=== PATIENT | male | born 1965 | race Caucasian/White ===

== ENCOUNTER 2016-09-02 08:26 | Inpatient (IN) | payer OTHER ==
[2016-09-02 10:06] VITALS: BMI 19.4
--- NOTE | 2016-09-02 12:33 | HP ---
COWS - Scale Resting Pulse: 0= [place] 80 or Below Sweatin= Chills/Flushing Restless Observation: 3= Extraneous Movement Pupil Size: 2= Moderately Dilated Bone or Joint Aches: 4=Acute Joint/Muscle Pain Runny Nose/ Eye Tearin= Nasal Congestion GI Upset > 30mins: 1= Stomach Cramp Tremor Observation: 2= Slight Tremor Visible Yawning Observation: 1= 1-2x During Session Anxiety or Irritability: 1=Feels Anxious/Irritable Goose Flesh Skin: 0=Smooth Skin COWS Score: 16 Admission ROS S - HPI Chief Complaint: DETOX TX FOR HEROIN DEPENDENCE Allergies/Adverse Reactions: Allergies Allergy/AdvReac Type Severity Reaction Status Date / Time No Known Drug Allergies Allergy Verified 09/02/16 10:18 History of Present Illness: 51 Y/O H/M WITH A HX OF HEROIN AND COCAINE DEPENDENCE SEEKING DETOX TX. PT WAS AT [facility] TODAY SEEKING DETOX AND WAS THEN REFERRED HERE FOR DETOX. ALERT O X 3. NAD. NO S/H IDEATIONS. Exam Limitations: No Limitations - Ebola screening Have you traveled outside of the country in the last 21 days: No Have you had contact with anyone from an Ebola affected area: No Have you been sick,other than usual withdrawal symptoms: No Do you have a fever: No - Review of Systems Constitutional: Chills, Loss of Appetite, Night Sweats, Changes in sleep, Unintentional Wgt. Loss EENT: reports: Blurred Vision, Tearing, Nose Congestion Respiratory: reports: No Symptoms reported Cardiac: reports: Lightheadedness GI: reports: Diarrhea, Nausea, Poor Appetite, Poor Fluid Intake, Vomiting, Abdominal cramping : reports: No Symptoms Reported Musculoskeletal: reports: Back Pain, Joint Pain, Muscle Pain Integumentary: reports: Bruising (IVD INJ SITES ON BOTH ELBOWS) Neuro: reports: Headache, Dizziness Endocrine: reports: No Symptoms Reported Hematology: reports: No Symptoms Reported Psychiatric: reports: Orientated x3, Anxious, Depressed Other Systems: Reviewed and Negative Patient History - Patient Medical History Hx Anemia: No Hx Asthma: No Hx Chronic Obstructive Pulmonary Disease (COPD): No Hx Cancer: No Hx Cardiac Disorders: No Hx Congestive Heart Failure: No Hx Hypertension: No Hx Hypercholesterolemia: No Hx Pacemaker: No HX Cerebrovascular Accident: No Hx Seizures: No Hx Dementia: No Hx Diabetes: No Hx Gastrointestinal Disorders: Yes (HX PANCREATITIS) Hx Liver Disease: Yes Hx Genitourinary Disorders: No Hx Sexually Transmitted Disorders: No Hx Renal Disease (ESRD): No Hx Thyroid Disease: No Hx Human Immunodeficiency Virus (HIV): No (NEGATIVE HX) Hx Hepatitis C: Yes (NO TREATMENT YET.) Hx Depression: Yes (NO CURRENT MED) Hx Suicide Attempt: Yes (pill overdose at age 47;DENIES CURRENT S/H IDEATIONS) Hx Bipolar Disorder: Yes (off seroquel for several months) Hx Schizophrenia: No - Patient Surgical History Past Surgical History: Yes Hx Neurologic Surgery: No Hx Cataract Extraction: No Hx Cardiac Surgery: No Hx Lung Surgery: No Hx Breast Surgery: No Hx Breast Biopsy: No Hx Abdominal Surgery: No Hx Appendectomy: No Hx Cholecystectomy: No Hx Genitourinary Surgery: No Hx Orthopedic Surgery: Yes (B/L SHOULDER 2011 for frozed shoulder) Anesthesia Reaction: No - PPD History Previous Implant?: Yes Documented Results: Negative w/proof Implanted On Prior [facility] Admission?: Yes Date: 07/03/15 Results: 0 mm PPD to be Administered?: Yes - Reproductive History Patient is a Female of Child Bearing Age (11 -55 yrs old): No (MALE) Patient : (N/A) - Smoking Cessation Smoking history: Current every day smoker Have you smoked in the past 12 months: Yes Aproximately how many cigarettes per day: 10 Hx Chewing Tobacco Use: No Initiated information on smoking cessation: Yes 'Breaking Loose' booklet given: 09/02/16 - Substance & Tx. History Hx Alcohol Use: No (DENIES) Hx Substance Use: Yes (HEROIN/COCAINE) Substance Use Type: Cocaine, Heroin Hx Substance Use Treatment: Yes (LAST TX AT [facility]-DETOX) - Substances Abused Heroin Route: Injection Frequency: Daily Amount used: 4-5 bags Age of first use: 23 Date of Last Use: 09/01/16 Cocaine Route: Injection Frequency: Daily Amount used: $40 Age of first use: 23 Date of Last Use: 09/01/16 Family Disease History - Family Disease History Family Disease History: Diabetes: Mother (alcohol), CA: Grandparent (LIVER ), Father (LIVER , alcohol) Admission Physical Exam S - Vital Signs Vital Signs: Vital Signs - 24 hr 09/02/16 10:04 Temperature 97.2 F L Pulse Rate 69 Respiratory 18 Rate Blood Pressure 119/73 - Physical General Appearance: Yes: Moderate Distress, Thin, Anxious HEENTM: Yes: EOMI, Normocephalic, JESI, Pharynx Normal Respiratory: Yes: Chest Non-Tender, Lungs Clear, Normal Breath Sounds, No Respiratory Distress Neck: Yes: Supple, Trachea in good position Breast: Yes: Breast Exam Deferred Cardiology: Yes: Regular Rhythm, Regular Rate, S1, S2 Abdominal: Yes: Normal Bowel Sounds, Non Tender, Soft Genitourinary: Yes: Other (N/C) Back: Yes: Within Normal Limits Musculoskeletal: Yes: full range of Motion, Gait Steady Extremities: Yes: Normal Range of Motion, Non-Tender Neurological: Yes: senior linux administrator II-XII NML intact, Fully Oriented, Alert Integumentary: Yes: Dry, Warm, Track Oliva (SLIGHT ECHYMOTIC AREA ON RIGHT ELBOW DUE TO IVD INJ.) Lymphatic: Yes: Within Normal Limits - Diagnostic (1) Nicotine dependence Current Visit: Yes Status: Acute Qualifiers: Nicotine product type: cigarettes Substance use status: in withdrawal Qualified Code(s): F17.213 - Nicotine dependence, cigarettes, with withdrawal (2) Cocaine dependence, uncomplicated Current Visit: Yes Status: Acute (3) Opioid dependence with withdrawal Current Visit: Yes Status: Acute (4) Weight loss Current Visit: Yes Status: Chronic Cleared for Admission [facility] - Detox or Rehab [facility] Level of Care: Medically Managed Detox Regimen/Protocol: Methadone [facility] Breath Alcohol Content Breath Alcohol Content: 0 Urine Drug Screen - Results Drug Screen Negative: No Urine Drug Screen Results: RAMIREZ-Cocaine, OPI-Opiates
[2016-09-02] MEDS ORDERED: guaiFENesin/D-METHORPHAN HB 10 ML UNIT-DOSE CUPS PO PRN (12:40)
[2016-09-02] MEDS ORDERED: IBUPROFEN 400 MG TABLET (FP) PO PRN (12:40)
[2016-09-02] MEDS ORDERED: MAGNESIUM CITRATE 300 ML BOTTLE PO PRN (12:40)
[2016-09-02] MEDS ORDERED: MAGNESIUM HYDROX 2400MG/30ML ORAL SUSPENSION 30 ML CUP PO PRN (12:40)
[2016-09-02] MEDS ORDERED: MAG HYDROX/AL HYDROX/SIMETH 30 ML UNIT-DOSE CUP PO PRN (12:40)
[2016-09-02] MEDS ORDERED: NICOTINE POLACRILEX 2 MG GUM BUC PRN (12:40)
[2016-09-02] MEDS ORDERED: P-EPHED 60MG/TRIPROLIDI 2.5MG TABLET PO PRN (12:40)
[2016-09-02] MEDS ORDERED: MENTHOL/PHENOL 1 EACH UD MM PRN (12:40)
[2016-09-02] MEDS ORDERED: ACETAMINOPHEN 325 MG TABLET (FP) PO PRN (12:40)
[2016-09-02] MEDS ORDERED: METHADONE HCL 10 MG TABLET (FOR DETOX USE ONLY) PO ONE ×2 (13:41→23:00)
[2016-09-02] MEDS: diazePAM 5 MG TABLET PO PRN ×2 (14:01→22:23)
[2016-09-02] MEDS: NICOTINE 14 MG/24 HOURS TOPICAL PATCH TD SCH (14:01)
[2016-09-02 21:57] LABS: URINE APPEARANCE CLEAR; URINE BILIRUBIN NEGATIVE (NEGATIVE); URINE BLOOD NEGATIVE (NEGATIVE); URINE COLOR AMBER; URINE GLUCOSE (UA) NEGATIVE (NEGATIVE); URINE KETONE NEGATIVE (NEGATIVE); URINE LEUK ESTERASE TRACE (NEGATIVE); URINE NITRITE NEGATIVE (NEGATIVE); URINE PROTEIN NEGATIVE (NEGATIVE); URINE UROBILINOGEN 4.0 E.U/dl mg/dL (0.2-1.0)
[2016-09-02 22:15] LABS: CALCIUM OXALATE CRYSTALS FEW /hpf (NONE SEEN); URINE BACTERIA RARE /hpf (NONE SEEN); URINE HYALINE CAST 2 /lpf; URINE MUCUS FEW; URINE RBC 3 /hpf (0-3); URINE WBC 7 /hpf (3-5)
[2016-09-02] MEDS: THIAMINE HCL 100 MG TABLET (FP) PO SCH (22:23)
[2016-09-02] MEDS: diphenhydrAMINE HCL 50 MG CAPSULE PO PRN (22:24)
[2016-09-03] MEDS ORDERED: METHADONE HCL 10 MG TABLET (FOR DETOX USE ONLY) PO ONE (10:00)
[2016-09-03] MEDS: PRENATAL VITAMINS W/ FOLIC ACID TABLET (FP) PO SCH (10:07)
[2016-09-03] MEDS: NICOTINE 14 MG/24 HOURS TOPICAL PATCH TD SCH (10:08)
[2016-09-03 10:31] LABS: MCH 31.1 pg (25.7-33.7); MEAN CELL VOLUME 94.3 fl (80-96); MEAN PLT VOLUME 10.3 fl (7.5-11.1); PLATELET COUNT 168 K/MM3 (134-434); RDW 12.9 % (11.9-15.9); WHITE BLOOD COUNT 5.8 K/mm3 (4.0-10.0)
[2016-09-03 10:57] LABS: ALBUMIN 3.6 g/dl (3.4-5.0); ALK PHOS 76 U/L (45-117); ANION GAP 7 (8-16); BILIRUBIN,TOTAL 1.5 mg/dL (0.2-1.0); CALCIUM 8.9 mg/dL (8.5-10.1); CO2 31 mmol/L (21-32); CREATININE 0.7 mg/dL (0.7-1.3); GLUCOSE,RANDOM 212 mg/dL (74-106); SGOT/AST 58 U/L (15-37); SGPT/ALT 79 U/L (12-78); TOT PROT 7.1 g/dl (6.4-8.2)
--- NOTE | 2016-09-03 14:00 | PN ---
BHS COWS - Scale Resting Pulse: 0= [place] 80 or Below Sweatin=Flushed/Facial Moisture Restless Observation: 1= Difficult to Sit Still Pupil Size: 0= Normal to Room Light Bone or Joint Aches: 1= Mild Discomfort Runny Nose/ Eye Tearin= Runny Nose/Eyes GI Upset > 30mins: 2= Nausea/Diarrhea Tremor Observation of Outstretched Hands: 2= Slight Tremor Visible Yawning Observation: 1= 1-2x During Session Anxiety or Irritability: 2=Irritable/Anxious Goose Flesh Skin: 0=Smooth Skin COWS Score: 13 BHS Progress Note (SOAP) Subjective: Anxiety,sweating,interrupted sleep,body aches,muscle spasm. Objective: 09/03/16 13:59 Vital Signs - 8 hr 09/03/16 09/03/16 09/03/16 06:00 06:30 09:50 Temperature 97.7 F 97.5 F L Pulse Rate 63 54 L Respiratory 18 18 18 Rate Blood Pressure 99/61 107/73 Laboratory Last Values WBC 5.8 K/mm3 (4.0-10.0) 09/03/16 06:15 RBC 4.67 M/mm3 (4.00-5.60) 09/03/16 06:15 Hgb 14.5 GM/dL (11.7-16.9) 09/03/16 06:15 Hct 44.0 % (35.4-49) 09/03/16 06:15 MCV 94.3 fl (80-96) 09/03/16 06:15 MCH 31.1 pg (25.7-33.7) 09/03/16 06:15 MCHC 33.0 g/dl (32.0-35.9) 09/03/16 06:15 RDW 12.9 % (11.9-15.9) 09/03/16 06:15 Plt Count 168 K/MM3 (134-434) D 09/03/16 06:15 MPV 10.3 fl (7.5-11.1) D 09/03/16 06:15 Sodium 137 mmol/L (136-145) 09/03/16 06:15 Potassium 3.9 mmol/L (3.5-5.1) 09/03/16 06:15 Chloride 99 mmol/L (98-107) 09/03/16 06:15 Carbon Dioxide 31 mmol/L (21-32) 09/03/16 06:15 Anion Gap 7 (8-16) L 09/03/16 06:15 BUN 9 mg/dL (7-18) D 09/03/16 06:15 Creatinine 0.7 mg/dL (0.7-1.3) 09/03/16 06:15 Creat Clearance w eGFR > 60 (>60) 09/03/16 06:15 Random Glucose 212 mg/dL (74-106) H D 09/03/16 06:15 Calcium 8.9 mg/dL (8.5-10.1) 09/03/16 06:15 Total Bilirubin 1.5 mg/dL (0.2-1.0) H D 09/03/16 06:15 AST 58 U/L (15-37) H D 09/03/16 06:15 ALT 79 U/L (12-78) H D 09/03/16 06:15 Alkaline Phosphatase 76 U/L (45-117) 09/03/16 06:15 Total Protein 7.1 g/dl (6.4-8.2) 09/03/16 06:15 Albumin 3.6 g/dl (3.4-5.0) 09/03/16 06:15 Urine Color Carly 09/02/16 21:00 Urine Appearance Clear 09/02/16 21:00 Urine pH 5.0 (5.0-8.0) 09/02/16 21:00 Ur Specific [place] >= 1.030 (1.005-1.025) H 09/02/16 21:00 Urine Protein Negative (NEGATIVE) 09/02/16 21:00 Urine Glucose (UA) Negative (NEGATIVE) 09/02/16 21:00 Urine Ketones Negative (NEGATIVE) 09/02/16 21:00 Urine Blood Negative (NEGATIVE) 09/02/16 21:00 Urine Nitrite Negative (NEGATIVE) 09/02/16 21:00 Urine Bilirubin Negative (NEGATIVE) 09/02/16 21:00 Urine Urobilinogen 4.0 e.u/dl mg/dL (0.2-1.0) 09/02/16 21:00 Ur Leukocyte Esterase Trace (NEGATIVE) 09/02/16 21:00 Urine RBC 3 /hpf (0-3) 09/02/16 21:00 Urine WBC 7 /hpf (3-5) 09/02/16 21:00 Ur Epithelial Cells Rare /hpf (FEW) 09/02/16 21:00 Calcium Oxalate Crystal Few /hpf (NONE SEEN) 09/02/16 21:00 Urine Bacteria Rare /hpf (NONE SEEN) 09/02/16 21:00 Hyaline Casts 2 /lpf 09/02/16 21:00 Urine Mucus Few 09/02/16 21:00 RPR Titer Nonreactive (NONREACTIVE) 09/03/16 06:15 labs noted Assessment: 09/03/16 14:00 Withdrawal sx. Plan: Continue detox
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
[2016-09-03] MEDS: QUEtiapine FUMARATE 100 MG TABLET (FP) PO SCH (22:06)
[2016-09-03] MEDS: diazePAM 5 MG TABLET PO PRN (22:06)
[2016-09-03] MEDS: diphenhydrAMINE HCL 50 MG CAPSULE PO PRN (22:06)
[2016-09-03] MEDS: THIAMINE HCL 100 MG TABLET (FP) PO SCH (22:06)
[2016-09-04] MEDS ORDERED: METHADONE HCL 5 MG TABLET (FOR DETOX USE ONLY) PO ONE (10:00)
[2016-09-04] MEDS: PRENATAL VITAMINS W/ FOLIC ACID TABLET (FP) PO SCH (10:21)
[2016-09-04] MEDS: NICOTINE 14 MG/24 HOURS TOPICAL PATCH TD SCH (10:22)
--- NOTE | 2016-09-04 12:50 | PN ---
BHS COWS - Scale Resting Pulse: 0= [place] 80 or Below Sweatin=Flushed/Facial Moisture Restless Observation: 1= Difficult to Sit Still Pupil Size: 0= Normal to Room Light Bone or Joint Aches: 1= Mild Discomfort Runny Nose/ Eye Tearin= Runny Nose/Eyes GI Upset > 30mins: 2= Nausea/Diarrhea Tremor Observation of Outstretched Hands: 2= Slight Tremor Visible Yawning Observation: 1= 1-2x During Session Anxiety or Irritability: 2=Irritable/Anxious Goose Flesh Skin: 0=Smooth Skin COWS Score: 13 BHS Progress Note (SOAP) Subjective: Anxiety,sweating,interrupted sleep,restless,body aches. Objective: 09/04/16 12:49 Vital Signs - 8 hr 09/04/16 09/04/16 06:00 10:00 Temperature 97.7 F 97.9 F Pulse Rate 61 62 Respiratory 16 18 Rate Blood Pressure 93/61 107/68 Laboratory Last Values WBC 5.8 K/mm3 (4.0-10.0) 09/03/16 06:15 RBC 4.67 M/mm3 (4.00-5.60) 09/03/16 06:15 Hgb 14.5 GM/dL (11.7-16.9) 09/03/16 06:15 Hct 44.0 % (35.4-49) 09/03/16 06:15 MCV 94.3 fl (80-96) 09/03/16 06:15 MCH 31.1 pg (25.7-33.7) 09/03/16 06:15 MCHC 33.0 g/dl (32.0-35.9) 09/03/16 06:15 RDW 12.9 % (11.9-15.9) 09/03/16 06:15 Plt Count 168 K/MM3 (134-434) D 09/03/16 06:15 MPV 10.3 fl (7.5-11.1) D 09/03/16 06:15 Sodium 137 mmol/L (136-145) 09/03/16 06:15 Potassium 3.9 mmol/L (3.5-5.1) 09/03/16 06:15 Chloride 99 mmol/L (98-107) 09/03/16 06:15 Carbon Dioxide 31 mmol/L (21-32) 09/03/16 06:15 Anion Gap 7 (8-16) L 09/03/16 06:15 BUN 9 mg/dL (7-18) D 09/03/16 06:15 Creatinine 0.7 mg/dL (0.7-1.3) 09/03/16 06:15 Creat Clearance w eGFR > 60 (>60) 09/03/16 06:15 Random Glucose 212 mg/dL (74-106) H D 09/03/16 06:15 Calcium 8.9 mg/dL (8.5-10.1) 09/03/16 06:15 Total Bilirubin 1.5 mg/dL (0.2-1.0) H D 09/03/16 06:15 AST 58 U/L (15-37) H D 09/03/16 06:15 ALT 79 U/L (12-78) H D 09/03/16 06:15 Alkaline Phosphatase 76 U/L (45-117) 09/03/16 06:15 Total Protein 7.1 g/dl (6.4-8.2) 09/03/16 06:15 Albumin 3.6 g/dl (3.4-5.0) 09/03/16 06:15 Urine Color Carly 09/02/16 21:00 Urine Appearance Clear 09/02/16 21:00 Urine pH 5.0 (5.0-8.0) 09/02/16 21:00 Ur Specific [place] >= 1.030 (1.005-1.025) H 09/02/16 21:00 Urine Protein Negative (NEGATIVE) 09/02/16 21:00 Urine Glucose (UA) Negative (NEGATIVE) 09/02/16 21:00 Urine Ketones Negative (NEGATIVE) 09/02/16 21:00 Urine Blood Negative (NEGATIVE) 09/02/16 21:00 Urine Nitrite Negative (NEGATIVE) 09/02/16 21:00 Urine Bilirubin Negative (NEGATIVE) 09/02/16 21:00 Urine Urobilinogen 4.0 e.u/dl mg/dL (0.2-1.0) 09/02/16 21:00 Ur Leukocyte Esterase Trace (NEGATIVE) 09/02/16 21:00 Urine RBC 3 /hpf (0-3) 09/02/16 21:00 Urine WBC 7 /hpf (3-5) 09/02/16 21:00 Ur Epithelial Cells Rare /hpf (FEW) 09/02/16 21:00 Calcium Oxalate Crystal Few /hpf (NONE SEEN) 09/02/16 21:00 Urine Bacteria Rare /hpf (NONE SEEN) 09/02/16 21:00 Hyaline Casts 2 /lpf 09/02/16 21:00 Urine Mucus Few 09/02/16 21:00 RPR Titer Nonreactive (NONREACTIVE) 09/03/16 06:15 labs noted Assessment: 09/04/16 12:50 Withdrawal sx. Plan: Continue detox
[2016-09-04] MEDS: diazePAM 5 MG TABLET PO PRN (22:00)
[2016-09-04] MEDS: QUEtiapine FUMARATE 100 MG TABLET (FP) PO SCH (22:00)
[2016-09-04] MEDS: diphenhydrAMINE HCL 50 MG CAPSULE PO PRN (22:00)
[2016-09-04] MEDS: THIAMINE HCL 100 MG TABLET (FP) PO SCH (22:01)
[2016-09-05] MEDS: diphenhydrAMINE HCL 50 MG CAPSULE PO PRN (00:25)
[2016-09-05] MEDS: LOPERAMIDE HCL 2 MG CAPSULE PO PRN ×2 (07:14→14:20)
--- NOTE | 2016-09-05 09:12 | PN ---
BHS Progress Note (SOAP) Subjective: irritable agitation sweats diarrhea interrupted sleep Objective: 09/05/16 09:11 Vital Signs Temperature 98.6 F 09/05/16 06:01 Pulse Rate 72 09/05/16 06:01 Respiratory Rate 18 09/05/16 06:01 Blood Pressure 105/66 09/05/16 06:01 O2 Sat by Pulse Oximetry (%) awake/alert ambulating no acute distress Assessment: 09/05/16 09:13 withdrawal sx Plan: continue detox increase fluids immodium prn
[2016-09-05] MEDS ORDERED: METHADONE HCL 5 MG TABLET (FOR DETOX USE ONLY) PO ONE (10:00)
--- NOTE | 2016-09-05 10:00 | EKG ---
Test Reason : Blood Pressure : / mmHG Vent. Rate : 081 BPM Atrial Rate : 081 BPM P-R Int : 136 ms QRS Dur : 092 ms QT Int : 356 ms P-R-T Axes : 067 072 059 degrees QTc Int : 413 ms NORMAL SINUS RHYTHM RIGHT ATRIAL ENLARGEMENT MODERATE VOLTAGE CRITERIA FOR LVH, MAY BE NORMAL VARIANT ST ELEVATION, CONSIDER EARLY REPOLARIZATION BORDERLINE ECG NO PREVIOUS ECGS AVAILABLE Confirmed by NIRAJ DEL TORO, MAYRA ([id number]) on 09/05/2016 9:59:55 AM Referred By: Martin Gregory Confirmed By:MAYRA HEALY MD
[2016-09-05] MEDS: diazePAM 5 MG TABLET PO PRN (10:16)
[2016-09-05] MEDS: PRENATAL VITAMINS W/ FOLIC ACID TABLET (FP) PO SCH (10:16)
[2016-09-05] MEDS: NICOTINE 14 MG/24 HOURS TOPICAL PATCH TD SCH (10:17)
[2016-09-05] MEDS: QUEtiapine FUMARATE 100 MG TABLET (FP) PO SCH (22:18)
[2016-09-05] MEDS: THIAMINE HCL 100 MG TABLET (FP) PO SCH (22:18)
[2016-09-06] MEDS: LOPERAMIDE HCL 2 MG CAPSULE PO PRN (00:58)
[2016-09-06] MEDS ORDERED: METHADONE HCL 10 MG TABLET (FOR DETOX USE ONLY) PO ONE (10:00)
[2016-09-06] MEDS: NICOTINE 14 MG/24 HOURS TOPICAL PATCH TD SCH (10:05)
--- NOTE | 2016-09-06 10:47 | PN ---
BHS Progress Note (SOAP) Subjective: diarrhea sweats Objective: 09/06/16 10:14 Vital Signs Temperature 98.4 F 09/06/16 10:00 Pulse Rate 81 09/06/16 10:00 Respiratory Rate 16 09/06/16 10:00 Blood Pressure 113/70 09/06/16 10:00 O2 Sat by Pulse Oximetry (%) awake/alert ambulating no acute distress Assessment: 09/06/16 10:15 withdrawal sx Plan: continue detox increase fluids lomotil x one d/c in am
[2016-09-06] MEDS ORDERED: DIPHENOXYLATE 2.5/ATROPINE.025 1 COMBO TABLET PO ONE (10:53)
[2016-09-06] MEDS: PRENATAL VITAMINS W/ FOLIC ACID TABLET (FP) PO SCH (11:49)
[2016-09-06] MEDS ORDERED: hydrOXYzine PAMOATE 50 MG CAPSULE (FP) PO PRN (20:35)
[2016-09-06] MEDS: QUEtiapine FUMARATE 100 MG TABLET (FP) PO SCH (22:16)
[2016-09-06] MEDS: THIAMINE HCL 100 MG TABLET (FP) PO SCH (22:16)
[2016-09-07] MEDS ORDERED: METHADONE HCL 5 MG TABLET (FOR DETOX USE ONLY) PO ONE (06:00)
--- NOTE | 2016-09-07 08:49 | DS ---
[facility] Detox Discharge Summary Admission Date: 09/02/16 Discharge Date: 09/07/16 - History Present History: Cocaine Dependence, Opioid Dependence - Physical Exam Results Vital Signs: Vital Signs Temperature 98.2 F 09/07/16 06:27 Pulse Rate 74 09/07/16 06:27 Respiratory Rate 18 09/07/16 06:27 Blood Pressure 115/73 09/07/16 06:27 O2 Sat by Pulse Oximetry (%) - Treatment Hospital Course: Detox Protocol Followed, Detoxed Safely, Responded well, Discharged Condition Good, Rehab Referral Accepted - Medication Discharge Medications: Ambulatory Orders NK [No Known Home Medication] 09/02/16 - Diagnosis (1) Cocaine dependence, uncomplicated Current Visit: Yes Status: Chronic (2) Nicotine dependence Current Visit: Yes Status: Chronic Qualifiers: Nicotine product type: cigarettes Substance use status: uncomplicated Qualified Code(s): F17.210 - Nicotine dependence, cigarettes, uncomplicated (3) Opioid dependence with withdrawal Current Visit: Yes Status: Chronic (4) Weight loss Current Visit: Yes Status: Chronic (5) Bipolar II disorder Current Visit: No Status: Acute (6) Drug-induced mood disorder Current Visit: No Status: Acute (7) Sedated Current Visit: No Status: Acute (8) Chronic pancreatitis Current Visit: No Status: Chronic Qualifiers: Pancreatitis type: idiopathic Qualified Code(s): K86.1 - Other chronic pancreatitis (9) Heroin use disorder, severe, dependence Current Visit: Yes Status: Chronic (10) Bipolar 1 disorder, depressed Current Visit: No Status: Suspected - AMA Did Patient Leave Against Medical Advice: No
[2016-09-07] MEDS: PRENATAL VITAMINS W/ FOLIC ACID TABLET (FP) PO SCH (09:16)
[2016-09-07] MEDS: NICOTINE 14 MG/24 HOURS TOPICAL PATCH TD SCH (09:16)
[2016-09-07 13:30] VITALS: BP 128/62; PULSE 81; TEMP 97.7
== END 2016-09-07 14:33 | disposition other institution (70) | DRG 773 ==
LOC: YASAS 08:26 → Y6N 11:50
PROVIDERS: ADMIT Internal Medicine; ATTEND Internal Medicine
PROC: HZ2ZZZZ Detoxification Services for Substance Abuse Treatment (ICD-10-PCS; principal; 2016-09-02)
DX: F11.23 Opioid dependence with withdrawal (principal); F14.20 Cocaine dependence, uncomplicated; F17.210 Nicotine dependence, cigarettes, uncomplicated; F31.81 Bipolar II disorder; F19.24 Other psychoactive substance dependence with psychoactive substance-induced mood disorder; K86.1 Other chronic pancreatitis; B18.2 Chronic viral hepatitis C; Z87.898 Personal history of other specified conditions; Z91.5 Personal history of self-harm
CPT/HCPCS: 36415; 80053; 81003; 81015; 82947; 85027; 86593; 93005; 93010

== ENCOUNTER 2016-09-07 14:41 | Inpatient (IN) | payer OTHER ==
[2016-09-07] MEDS ORDERED: MAGNESIUM HYDROX 2400MG/30ML ORAL SUSPENSION 30 ML CUP PO PRN (15:54)
[2016-09-07] MEDS ORDERED: ACETAMINOPHEN 325 MG TABLET (FP) PO PRN (15:54)
[2016-09-07] MEDS ORDERED: NICOTINE POLACRILEX 2 MG GUM BUC PRN (15:54)
[2016-09-07] MEDS ORDERED: hydrOXYzine PAMOATE 50 MG CAPSULE (FP) PO PRN (15:54)
[2016-09-07] MEDS ORDERED: MAG HYDROX/AL HYDROX/SIMETH 30 ML UNIT-DOSE CUP PO PRN (15:54)
[2016-09-07] MEDS ORDERED: diphenhydrAMINE HCL 50 MG CAPSULE PO PRN (15:54)
[2016-09-07] MEDS ORDERED: LOPERAMIDE HCL 2 MG CAPSULE PO PRN (15:54)
[2016-09-07] MEDS ORDERED: IBUPROFEN 400 MG TABLET (FP) PO PRN (15:54)
[2016-09-07] MEDS ORDERED: MAGNESIUM CITRATE 300 ML BOTTLE PO PRN (15:54)
[2016-09-07] MEDS ORDERED: guaiFENesin/D-METHORPHAN HB 10 ML UNIT-DOSE CUPS PO PRN (15:54)
[2016-09-07] MEDS ORDERED: MENTHOL/PHENOL 1 EACH UD MM PRN (15:54)
[2016-09-07] MEDS ORDERED: P-EPHED 60MG/TRIPROLIDI 2.5MG TABLET PO PRN (15:54)
[2016-09-07] MEDS ORDERED: NICOTINE 21 MG/24 HOURS TOPICAL PATCH TD SCH (16:00)
--- NOTE | 2016-09-07 19:49 | PN ---
[facility] Progress Note Note: Psychiatry Attending-loss prevention consultant 's note : Nurse in charge called earlier (one hour ago). Issue : new admission,Karime Metz,wants to leave program. He is instructed to wait for psychiatrist.Refused to stay for evaluation. Left unit despite staff's instructions to wait for meeting with physician.
[2016-09-07] MEDS ORDERED: THIAMINE HCL 100 MG TABLET (FP) PO SCH (22:00)
--- NOTE | 2016-09-08 06:03 | HP ---
[facility] Re[facility] Assess/Revision - Admission History Admitted to Rehab from: [facility] Date of Admission to Rehab: 09/07/16 - Findings Detox History & Physical reviewed: Yes Concur with findings: Yes Comments/Additional Findings: for rehab as protocol
[2016-09-08] MEDS ORDERED: PRENATAL VITAMINS W/ FOLIC ACID TABLET (FP) PO SCH (10:00)
== END 2016-09-07 17:35 | disposition left against medical advice (07) | DRG 770 ==
LOC: YASAS 14:41 → Y3W 14:42
PROVIDERS: ADMIT Psychiatry & Neurology Psychiatry; ATTEND Psychiatry & Neurology Psychiatry
PROC: HZ42ZZZ Group Counseling for Substance Abuse Treatment, Cognitive-Behavioral (ICD-10-PCS; principal; 2016-09-07)
DX: F11.20 Opioid dependence, uncomplicated (principal); F14.20 Cocaine dependence, uncomplicated; F17.210 Nicotine dependence, cigarettes, uncomplicated

== ENCOUNTER 2023-10-22 10:27 | Inpatient (IN) | payer OTHER ==
[2023-10-22 11:04] VITALS: BMI 19.9
[2023-10-22] MEDS ORDERED: TRIMETHOBENZAMIDE HCL 200MG/2ML INJ IM ONE (15:01)
[2023-10-22] MEDS: TRIMETHOBENZAMIDE HCL 200MG/2ML INJ IM ONE (15:08)
[2023-10-22] MEDS ORDERED: MAG HYDROX/AL HYDROX/SIMETH 30 ML UNIT-DOSE CUP PO PRN (17:12)
[2023-10-22] MEDS ORDERED: NICOTINE POLACRILEX 4 MG GUM BUC PRN (17:12)
[2023-10-22] MEDS ORDERED: guaiFENesin 600 MG TABLET.ER (FP) PO PRN (17:12)
[2023-10-22] MEDS ORDERED: IBUPROFEN 400 MG TABLET (FP) PO PRN (17:12)
[2023-10-22] MEDS ORDERED: NALOXONE HCL 0.4 MG/ML VIAL IM PRN (17:12)
[2023-10-22] MEDS ORDERED: POLYETHYLENE GLYCOL (HEALTHYLAX) 3350 17 GM PACKET PO PRN (17:12)
[2023-10-22] MEDS ORDERED: IBUPROFEN 600 MG TABLET (FP) PO PRN (17:12)
[2023-10-22] MEDS ORDERED: NALOXONE (NARCAN) HCL 4 MG/0.1 ML SPRAY NS PRN (17:12)
[2023-10-22] MEDS ORDERED: MAGNESIUM HYDROX 2400MG/30ML ORAL SUSPENSION 30 ML CUP PO PRN (17:12)
[2023-10-22] MEDS ORDERED: hydrOXYzine PAMOATE 25 MG CAPSULE (FP) PO PRN (17:12)
[2023-10-22] MEDS ORDERED: BISMUTH SUBSALICYLATE 524 MG/30 ML PO PRN (17:12)
[2023-10-22] MEDS ORDERED: BENZOCAINE/MENTHOL (CHLORASEPTIC ) LOZENGE MM PRN (17:12)
[2023-10-22] MEDS ORDERED: ONDANSETRON *ODT* 4 MG TABLET SL PRN (17:12)
[2023-10-22] MEDS ORDERED: ACETAMINOPHEN 325 MG TABLET (FP) PO PRN (17:12)
[2023-10-22] MEDS ORDERED: LOPERAMIDE HCL 2 MG CAPSULE PO PRN (17:12)
[2023-10-22] MEDS ORDERED: BENZONATATE 200 MG CAPSULE PO PRN (17:12)
[2023-10-22] MEDS ORDERED: DICYCLOMINE HCL 10 MG CAPSULE PO PRN (17:12)
[2023-10-22] MEDS ORDERED: cloNIDine HCL 0.1 MG TABLET PO SCH (18:00)
[2023-10-22] MEDS: MELATONIN 5 MG TABLETS PO SCH (22:09)
[2023-10-22] MEDS: diazePAM 5 MG TABLET PO PRN (22:10)
[2023-10-22] MEDS: THIAMINE 100 MG TABLET PO SCH (22:10)
[2023-10-22] MEDS: METHOCARBAMOL 500 MG TABLET PO PRN (22:10)
[2023-10-22] MEDS: methaDONE HCL 10 MG TABLET PO ONE (22:11)
[2023-10-23] MEDS: PRENATAL VITAMINS W/ FOLIC ACID TABLET (FP) PO SCH (10:22)
[2023-10-23] MEDS: methaDONE HCL 10 MG TABLET PO ONE (10:23)
[2023-10-23 11:40] LABS: CHLORIDE 102 mmol/L (98-107); POTASSIUM 4.5 mmol/L (3.5-5.1); SODIUM 139 mmol/L (136-145)
[2023-10-23 11:47] LABS: ALBUMIN 3.2 g/dl (3.4-5.0); ANION GAP 8 mmol/L (4-13); CALCIUM 9.2 mg/dL (8.5-10.1); CO2 29 mmol/L (21-32)
[2023-10-23 11:48] LABS: BLOOD UREA NITROGEN 12.5 mg/dL (7-18); GLUCOSE,RANDOM 198 mg/dL (74-106)
[2023-10-23 11:50] LABS: SGOT/AST 63 U/L (15-37); SGPT/ALT 81 U/L (13-61)
[2023-10-23 11:51] LABS: CREATININE 0.8 mg/dL (0.55-1.3); HEMATOCRIT 40.3 % (35.4-49); HEMOGLOBIN 13.4 GM/dL (11.7-16.9); MCH 29.3 pg (25.7-33.7); MCHC 33.4 g/dl (32.0-35.9); MEAN CELL VOLUME 87.7 fl (80-96); MEAN PLT VOLUME 8.9 fl (7.5-11.1); PLATELET COUNT 260 10^3/uL (134-434); RBC 4.59 M/mm3 (4.00-5.60); RDW 14.2 % (11.9-15.9); WHITE BLOOD COUNT 5.6 K/mm3 (4.0-10.0)
[2023-10-23 11:52] LABS: BILIRUBIN,TOTAL 0.9 mg/dL (0.2-1); TOT PROT 7.6 g/dl (6.4-8.2)
[2023-10-23 11:53] LABS: ALK PHOS 107 U/L (45-117)
[2023-10-24] MEDS ORDERED: cloNIDine HCL 0.1 MG TABLET PO PRN
[2023-10-24] MEDS: methaDONE HCL 10 MG TABLET PO ONE (10:42)
[2023-10-25] MEDS ORDERED: methaDONE HCL 40 MG DISPERSABLE TABLET PO ONE (10:00)
[2023-10-25] MEDS: methaDONE 40 MG, methaDONE 10 MG PO ONE (10:34)
[2023-10-25] MEDS: hydrOXYzine PAMOATE 25 MG CAPSULE (FP) PO PRN (17:39)
[2023-10-26] MEDS ORDERED: methaDONE HCL 40 MG DISPERSABLE TABLET PO ONE (10:00)
[2023-10-26] MEDS: methaDONE 40 MG, methaDONE 20 MG PO ONE (10:37)
[2023-10-26 17:03] VITALS: RESP 18
[2023-10-26 20:31] VITALS: BP 147/87; PULSE 69; TEMP 97.7
== END 2023-10-26 20:35 | disposition other institution (70) | DRG 773 ==
LOC: YASAS 10:27 → SUATTDRO 10:27 → Y3N 17:13
PROVIDERS: ADMIT Allergy & Immunology; ATTEND Surgery
PROC: HZ2ZZZZ Detoxification Services for Substance Abuse Treatment (ICD-10-PCS; principal; 2023-10-22)
DX: F11.23 Opioid dependence with withdrawal (principal); F17.210 Nicotine dependence, cigarettes, uncomplicated; F19.24 Other psychoactive substance dependence with psychoactive substance-induced mood disorder; F31.9 Bipolar disorder, unspecified; G62.1 Alcoholic polyneuropathy; B18.2 Chronic viral hepatitis C; R76.8 Other specified abnormal immunological findings in serum; R79.89 Other specified abnormal findings of blood chemistry; Z91.199 Patient's noncompliance with other medical treatment and regimen due to unspecified reason
CPT/HCPCS: 36415; 80053; 80305; 80307; 85027; 86780; 86803; 87522; 87811; 93005; 93010

== ENCOUNTER 2023-10-26 20:54 | Inpatient (IN) | payer OTHER ==
[2023-10-26] MEDS ORDERED: IBUPROFEN 600 MG TABLET (FP) PO PRN (22:40)
[2023-10-26] MEDS ORDERED: LOPERAMIDE HCL 2 MG CAPSULE PO PRN (22:40)
[2023-10-26] MEDS ORDERED: MAG HYDROX/AL HYDROX/SIMETH 30 ML UNIT-DOSE CUP PO PRN (22:40)
[2023-10-26] MEDS ORDERED: NALOXONE (NARCAN) HCL 4 MG/0.1 ML SPRAY NS PRN (22:40)
[2023-10-26] MEDS ORDERED: IBUPROFEN 400 MG TABLET (FP) PO PRN (22:40)
[2023-10-26] MEDS ORDERED: NALOXONE HCL 0.4 MG/ML VIAL IVPUSH PRN (22:40)
[2023-10-26] MEDS ORDERED: BENZOCAINE/MENTHOL (CHLORASEPTIC ) LOZENGE MM PRN (22:40)
[2023-10-26] MEDS ORDERED: guaiFENesin 600 MG TABLET.ER (FP) PO PRN (22:40)
[2023-10-26] MEDS ORDERED: POLYETHYLENE GLYCOL (HEALTHYLAX) 3350 17 GM PACKET PO PRN (22:40)
[2023-10-26] MEDS ORDERED: BENZONATATE 200 MG CAPSULE PO PRN (22:40)
[2023-10-26] MEDS ORDERED: ACETAMINOPHEN 325 MG TABLET (FP) PO PRN (22:40)
[2023-10-26] MEDS ORDERED: MAGNESIUM HYDROX 2400MG/30ML ORAL SUSPENSION 30 ML CUP PO PRN (22:40)
[2023-10-26] MEDS: MELATONIN 5 MG TABLETS PO SCH (23:08)
[2023-10-27] MEDS: PRENATAL VITAMINS W/ FOLIC ACID TABLET (FP) PO SCH (09:49)
[2023-10-27] MEDS: methaDONE 40 MG, methaDONE 20 MG PO SCH (09:50)
[2023-10-27] MEDS: methaDONE HCL 10 MG TABLET PO SCH (10:04)
[2023-10-27] MEDS: THIAMINE 100 MG TABLET PO SCH (21:21)
[2023-10-27] MEDS: hydrOXYzine PAMOATE 25 MG CAPSULE (FP) PO PRN (21:21)
[2023-11-01] MEDS: methaDONE HCL 10 MG TABLET PO ONE (14:10)
[2023-11-02] MEDS: methaDONE 40 MG, methaDONE 30 MG PO SCH (05:41)
[2023-11-02] MEDS ORDERED: methaDONE HCL 40 MG DISPERSABLE TABLET PO SCH (09:15)
[2023-11-10] MEDS ORDERED: NALOXONE (NYS OPIOID OVERDOSE PROGRAM) 4 MG/0.1 ML SPRAY NS PRN ×2 (13:00→14:46)
[2023-11-10] MEDS ORDERED: NALOXONE (NYS OPIOID OVERDOSE PROGRAM) 4 MG/0.1 ML SPRAY NS ONE (13:00)
[2023-11-14 06:34] VITALS: RESP 16
[2023-11-16 07:00] VITALS: BP 114/70; PULSE 66; TEMP 98.2
== END 2023-11-16 09:55 | disposition home or self-care (01) | DRG 772 ==
LOC: YASAS 20:54 → Y3W 20:57
PROVIDERS: ADMIT Allergy & Immunology; ATTEND Psychiatry & Neurology Pain Medicine
PROC: HZ42ZZZ Group Counseling for Substance Abuse Treatment, Cognitive-Behavioral (ICD-10-PCS; principal; 2023-10-26)
DX: F11.20 Opioid dependence, uncomplicated (principal); F14.20 Cocaine dependence, uncomplicated; F17.210 Nicotine dependence, cigarettes, uncomplicated; F31.81 Bipolar II disorder; F19.24 Other psychoactive substance dependence with psychoactive substance-induced mood disorder; G62.1 Alcoholic polyneuropathy; K86.1 Other chronic pancreatitis; R76.8 Other specified abnormal immunological findings in serum; Z59.01 Sheltered homelessness; Z91.199 Patient's noncompliance with other medical treatment and regimen due to unspecified reason
CPT/HCPCS: 36415; 82962; 86803; 87522